=== PATIENT | male | born 1960 ===

== ENCOUNTER 2019-03-10 08:47 | Outpatient (CLI) | payer OTHER | END 2019-03-10 08:56 | disposition home or self-care (01) | LOC: SONOGRAMA 08:47 → MAMO-SONO 09:15 | DX: K76.1 Chronic passive congestion of liver (principal); E11.65 Type 2 diabetes mellitus with hyperglycemia; I10 Essential (primary) hypertension ==

== ENCOUNTER 2019-04-18 05:45 | Day surgery (SDC) | payer OTHER ==
[~2019-04-18 05:45] MED LIST: AMLODIPINE PO; ASPIRIN81 M1 PO; COZAAR100 MG PO; FORTAMET1000 MG PO; INDAPAMIDE1.25 MG PO; LANTUS; ZOCOR PO; ZYRTEC10 M3 PO
[2019-04-18] MEDS ORDERED: SURFAK240 M1 PO (09:33)
[2019-04-18] MEDS ORDERED: POLY119PG PO (09:33)
[2019-04-18] MEDS ORDERED: PERCOCET 5-3251 EACH PO (09:33)
== END 2019-04-18 12:25 | disposition home or self-care (01) ==
LOC: CIR.AMB 05:45
DX: K80.10 Calculus of gallbladder with chronic cholecystitis without obstruction (principal); K43.9 Ventral hernia without obstruction or gangrene; K42.9 Umbilical hernia without obstruction or gangrene

== ENCOUNTER 2020-10-06 10:24 | Outpatient (CLI) | payer OTHER ==
[~2020-10-06 10:24] MED LIST changes: +PERCOCET 5-3251 EACH PO; +POLY119PG PO; +SURFAK240 M1 PO
== END 2020-10-06 10:38 | disposition home or self-care (01) ==
LOC: TOM 10:24
DX: J32.3 Chronic sphenoidal sinusitis (principal)

== ENCOUNTER 2021-06-16 08:37 | Outpatient (CLI) | payer OTHER | END 2021-06-16 08:46 | disposition home or self-care (01) | LOC: SONOGRAMA 08:37 | PROVIDERS: ATTEND Surgery | DX: N20.0 Calculus of kidney (principal) ==